=== PATIENT | male | born 1995 | race Caucasian/White ===

== ENCOUNTER 2021-05-18 14:47 | Emergency (ER) | payer OTHER ==
[~2021-05-18] VITALS: Ht 185.4 cm; Wt 140.6 kg
--- NOTE | 2021-05-18 14:58 | NUR ---
BIBS FOR ACCIDENTALLY CUT HIS LEFT HAND WHILE CUTTING VEG. AT HOME. RATES PAIN 5/10. WILL CONTINUE TO MONITOR THE PATIENT.
[2021-05-18] MEDS ORDERED: TDAP [DIPH/PERTUSSIS/TET] 0.5 ML VIAL IM ONE ×2 (15:30→15:57)
[2021-05-18] MEDS ORDERED: LIDOCAINE HCL/PF 1% 30 ML VIAL TP ONE (15:30)
[2021-05-18] MEDS ORDERED: CEPH500C2 PO (16:02)
--- NOTE | 2021-05-18 16:09 | NUR ---
Patient discharged to home in stable condition. Written and verbal after care instructions given. Patient verbalizes understanding of instruction.
[2021-05-18 16:10] VITALS: BP 138/79
== END 2021-05-18 16:10 | disposition home or self-care (01) ==
LOC: ER 14:52
DX: S61.012A Laceration without foreign body of left thumb without damage to nail, initial encounter (principal); Z88.2 Allergy status to sulfonamides; W26.0XXA Contact with knife, initial encounter; Y93.89 Activity, other specified; Y92.89 Other specified places as the place of occurrence of the external cause; Y99.8 Other external cause status
CPT/HCPCS: 12002; 90471; 90715; 99283; J3490

== ENCOUNTER 2021-05-26 17:16 | Emergency (ER) | payer OTHER ==
[~2021-05-26] VITALS: Ht 185.4 cm; Wt 140.6 kg
[~2021-05-26 17:16] MED LIST: CEPH500C2 PO
[2021-05-26 17:25] VITALS: BP 144/68
--- NOTE | 2021-05-26 17:40 | NUR ---
8 sutures removed. pt tolerated procedure well. discharged in stable condition.
== END 2021-05-26 17:42 | disposition home or self-care (01) ==
LOC: ER 17:17
DX: S61.011D Laceration without foreign body of right thumb without damage to nail, subsequent encounter (principal); Z88.2 Allergy status to sulfonamides; X58.XXXD Exposure to other specified factors, subsequent encounter